=== PATIENT | male | born 1995 | race Asian ===

== ENCOUNTER 2021-04-12 23:16 | Emergency (ER) | payer OTHER ==
[2021-04-12 23:29] VITALS: BMI 21.9
[2021-04-13 01:30] LABS: BASO % 0.5 % (0-2.0); EOS % 3.7 % (0-4.5); HEMATOCRIT 42.6 % (35.4-49); HEMOGLOBIN 14.6 GM/dL (11.7-16.9); LYMPH % 28.9 % (8-40); MCH 27.7 pg (25.7-33.7); MCHC 34.3 g/dl (32.0-35.9); MEAN PLT VOLUME 8.7 fl (7.5-11.1); MONO % 6.5 % (3.8-10.2); NEUT % 60.4 % (42.8-82.8); PLATELET COUNT 247 K/MM3 (134-434); RBC 5.27 M/mm3 (4.00-5.60); RDW 14.3 % (11.9-15.9); WHITE BLOOD COUNT 9.7 K/mm3 (4.0-10.0)
[2021-04-13 01:50] LABS: INR 1.08 (0.83-1.09)
[2021-04-13 01:53] LABS: ACTIVATED PTT 37.7 SECONDS (25.2-36.5)
[2021-04-13 01:59] LABS: ALBUMIN 4.3 g/dl (3.4-5.0); BLOOD UREA NITROGEN 22.4 mg/dL (7-18)
[2021-04-13 02:02] LABS: CREATININE 1.1 mg/dL (0.55-1.3)
[2021-04-13 02:03] LABS: CHOLESTEROL 267 mg/dL (50-200); TRIGLYCERIDES 49 mg/dL (0-150)
[2021-04-13 02:04] LABS: BILIRUBIN,TOTAL 0.5 mg/dL (0.2-1); TOT PROT 7.5 g/dl (6.4-8.2)
[2021-04-13 02:05] VITALS: BP 137/81; PULSE 92; TEMP 97.5
[2021-04-13 02:05] LABS: HDL CHOLESTEROL 76 mg/dL (40-60); LDL CHOLESTEROL (ONLY SJRH) 154 mg/dL (5-100)
[2021-04-13] MEDS ORDERED: LACTATED RINGERS SOLUTION 1000 ML INFUS.BAG IV STA (02:37)
== END 2021-04-13 04:22 | disposition left against medical advice (07) ==
LOC: JER 23:16
DX: T79.6XXA Traumatic ischemia of muscle, initial encounter (principal); R51.9 Headache, unspecified; E87.5 Hyperkalemia
CPT/HCPCS: 36415; 70450-TC; 70496-TC; 80053; 80061; 82550; 82553; 83721; 84484; 85025; 85610; 85730; 93005; 93010; 99285-25

== ENCOUNTER 2022-09-29 19:15 | Observation (INO) | payer SELFPAY ==
[2022-09-29 19:48] VITALS: RESP 18; BMI 21.3
[2022-09-29 21:43] LABS: BASO % 0.4 % (0-2.0); EOS % 1.8 % (0-4.5); HEMATOCRIT 46.7 % (35.4-49); HEMOGLOBIN 15.4 GM/dL (11.7-16.9); MCH 27.2 pg (25.7-33.7); MCHC 32.9 g/dl (32.0-35.9); MEAN CELL VOLUME 82.5 fl (80-96); MONO % 6.2 % (3.8-10.2); NEUT % 66.6 % (42.8-82.8); PLATELET COUNT 336 10^3/uL (134-434); RBC 5.66 M/mm3 (4.00-5.60); RDW 14.3 % (11.9-15.9); WHITE BLOOD COUNT 9.1 K/mm3 (4.0-10.0)
[2022-09-29 22:04] LABS: CHLORIDE 110 mmol/L (98-107); SODIUM 143 mmol/L (136-145)
[2022-09-29 22:06] LABS: CALCIUM 9.2 mg/dL (8.5-10.1)
[2022-09-29 22:07] LABS: ANION GAP 9 MMOL/L (8-16); BLOOD UREA NITROGEN 28.7 mg/dL (7-18); CO2 25 mmol/L (21-32); GLUCOSE,RANDOM 103 mg/dL (74-106)
[2022-09-29 22:10] LABS: CREATININE 1.4 mg/dL (0.55-1.3); SGOT/AST 33 U/L (15-37); SGPT/ALT 37 U/L (13-61)
[2022-09-29 22:12] LABS: BILIRUBIN,TOTAL 0.3 mg/dL (0.2-1)
[2022-09-29 22:13] LABS: ALK PHOS 101 U/L (45-117)
[2022-09-30 01:31] LABS: INR 1.13 (0.83-1.09)
[2022-09-30 01:34] LABS: ACTIVATED PTT 28.3 SECONDS (25.2-36.5)
[2022-09-30] MEDS ORDERED: LACTATED RINGERS SOLUTION 1,000 ML IV SCH ×2 (03:30→06:16)
[2022-09-30] MEDS ORDERED: HEPARIN NA (PORCINE) 5,000 UNITS/ML 1ML VIAL SQ SCH (06:00)
[2022-09-30] MEDS ORDERED: ENOXAPARIN NA (PORCINE) 60 MG/0.6 ML DISP.SYRIN SQ SCH (06:19)
[2022-09-30] MEDS ORDERED: ENOXAPARIN NA (PORCINE) 60 MG/0.6 ML DISP.SYRIN SQ ONE (08:01)
[2022-09-30 09:40] LABS: BASO % 0.4 % (0-2.0); EOS % 2.9 % (0-4.5); HEMATOCRIT 45.5 % (35.4-49); LYMPH % 30.8 % (8-40); MCH 27.3 pg (25.7-33.7); MCHC 33.1 g/dl (32.0-35.9); MEAN CELL VOLUME 82.5 fl (80-96); MEAN PLT VOLUME 7.9 fl (7.5-11.1); MONO % 6.3 % (3.8-10.2); NEUT % 59.6 % (42.8-82.8); PLATELET COUNT 325 10^3/uL (134-434); RBC 5.52 M/mm3 (4.00-5.60); RDW 14.7 % (11.9-15.9); WHITE BLOOD COUNT 6.6 K/mm3 (4.0-10.0)
[2022-09-30 10:05] LABS: ALBUMIN 3.9 g/dl (3.4-5.0); CALCIUM 9.4 mg/dL (8.5-10.1)
[2022-09-30 10:06] LABS: BLOOD UREA NITROGEN 24.7 mg/dL (7-18); MAGNESIUM 2.1 mg/dL (1.8-2.4)
[2022-09-30 10:09] LABS: CREATININE 1.2 mg/dL (0.55-1.3); PHOSPHOROUS 2.9 mg/dL (2.5-4.9)
[2022-09-30 10:10] LABS: BILIRUBIN,TOTAL 0.7 mg/dL (0.2-1)
[2022-09-30] MEDS ORDERED: ASPIRIN 81 MG CHEWABLE TABLETS PO ONE (10:15)
[2022-09-30] MEDS ORDERED: ATORVASTATIN CA 40 MG TABLET (FP) PO ONE (10:16)
[2022-09-30] MEDS ORDERED: ATORVASTATIN CA 40 MG TABLET (FP) ONE (11:30)
[2022-09-30] MEDS ORDERED: ASPIRIN 81 MG CHEWABLE TABLETS ONE (11:30)
[2022-09-30 14:51] VITALS: BP 130/75; PULSE 55; TEMP 98
== END 2022-09-30 14:30 | disposition home or self-care (01) ==
LOC: SUATTDRO 19:15 → JER 19:15 → JERBED 09-30 03:24
PROVIDERS: ADMIT Internal Medicine; ATTEND Internal Medicine
PROC: 3E023GC Introduction of Other Therapeutic Substance into Muscle, Percutaneous Approach (ICD-10-PCS; principal; 2022-09-30)
PROC: 3E0337Z Introduction of Electrolytic and Water Balance Substance into Peripheral Vein, Percutaneous Approach (ICD-10-PCS; 2022-09-30)
DX: R77.8 Other specified abnormalities of plasma proteins (principal); M62.82 Rhabdomyolysis; I60.7 Nontraumatic subarachnoid hemorrhage from unspecified intracranial artery; N17.9 Acute kidney failure, unspecified; R55 Syncope and collapse
CPT/HCPCS: 36415; 70450-TC; 71046-TC-FY; 71275-TC; 80053; 80061; 82308; 82550; 82553; 83605; 83735; 84100; 84146; 84484; 85025; 85379; 85610; 85730; 86850; 86900; 86901; 93005; 93010; 93306-TC; 99285-25; C9803-CS; G0378; Q9967; U0003; U0005

== ENCOUNTER 2023-01-25 22:15 | Emergency (ER) | payer OTHER ==
[2023-01-25 22:57] VITALS: BP 154/76; PULSE 90; RESP 20; TEMP 97.8; BMI 21.6
== END 2023-01-25 23:31 | disposition home or self-care (01) ==
LOC: JER 22:15
DX: M25.561 Pain in right knee (principal); W19.XXXA Unspecified fall, initial encounter; Y93.75 Activity, martial arts
CPT/HCPCS: 73562-TC-RT-FY; 99285-25